=== PATIENT | female | born 1935 ===

== ENCOUNTER 2019-07-04 14:07 | Outpatient (CLI) | payer OTHER ==
[~2019-07-04] VITALS: Ht 162.6 cm; Wt 68.9 kg
== END 2019-07-04 14:25 | disposition home or self-care (01) ==
LOC: OFIC 805 14:07
DX: K21.0 Gastro-esophageal reflux disease with esophagitis (principal); H61.22 Impacted cerumen, left ear; R49.0 Dysphonia